=== PATIENT | male | born 1975 | race Caucasian/White ===

== ENCOUNTER 2017-01-08 05:09 | Day surgery (SDC) | payer BC ==
[~2017-01-08] VITALS: Ht 175.3 cm; Wt 72.7 kg
[~2017-01-08 05:09] MED LIST: ADDERALL 20 MG20 M1 PO
[2017-01-08 07:53] VITALS: BP 127/83; BMI 23.6
[2017-01-08] MEDS ORDERED: HYDROCODON-ACE1 EAC7 PO (12:18)
--- NOTE | 2017-01-08 20:05 | NUR ---
RECEIVED PT FROM OP SURGERY VIA WHEELCHAIR TO ROOM 1216 ACCOMPANIED BY STAFF AND FAMILY. INTRODUCED SELF. V/S TAKEN. ASSESSMENT DONE. STATUS POST BILATERAL INGUINAL HERNIA REPAIR TODAY WITH URINARY RETENTION. RUSSO CATH INSERTED IN OP SURGERY WITH BLOODY URINE OUTPUT IN DRAINAGE BAG. DENIES PAIN AT THIS TIME. ORIENTED TO ROOM AND BED CONROLS. PLAN OF CARE INITIATED.
[2017-01-08 20:10] VITALS: BP 108/58
[2017-01-08 20:38] VITALS: BP 108/58; Ht 175.3 cm; Wt 72.7 kg
--- NOTE | 2017-01-08 21:30 | NUR ---
IC3 BAG TO UMBILICAL AREA. SMALL SEROUS-SANGUINOUS DRAINAGE NOTED.
--- NOTE | 2017-01-09 01:00 | NUR ---
AWAKENED FOR V/S. INFORMED PT OF IV ORDER FOR 1L OF NS AND LASIX IV. PT REFUSED TO HAVE IV REINSERTED.
[2017-01-09 01:50] VITALS: BP 106/68
--- NOTE | 2017-01-09 01:59 | NUR ---
PAIN LEVEL 6/10 FROM POST-OP INGUINAL HERNIA REPAIR. NORCO 5/325 1tab PO GIVEN. V/S STABLE.
--- NOTE | 2017-01-09 03:10 | NUR ---
EYES CLOSED. LEFT UNDISTURBED. SPOUSE HERE.
--- NOTE | 2017-01-09 05:30 | NUR ---
SLEPT FAIRLY WELL DURING THE NIGHT. CONTINUING PLAN OF CARE.
--- NOTE | 2017-01-09 08:44 | NUR ---
PT REQUESTS PAIN MEDICATION FOR PAIN TO ABD INCISIONAL AREA, UMBILICAL REGION, ABDOMEN NOTED C/D/I. PT REPORTS DR. DAVID HAS BEEN IN THIS AM, DISCUSSING PLAN FOR DISCHARGE. FAMILY AT BEDSIDE. PT DENIES OTHER NEEDS AT THIS TIME. SR UP X 2, CALL LIGHT AND PHONE WITHIN REACH. NORCO 5 MG GIVEN FOR PT'S REQUEST FOR PAIN MEDICATION. SEE EMAR.
[2017-01-09] MEDS ORDERED: FLOMAX0.4 MG PO (09:41)
[2017-01-09] MEDS ORDERED: LASIX20 MG PO (09:42)
== END 2017-01-09 11:00 | disposition home or self-care (01) ==
LOC: D.WS 05:09 → D.OPS 05:09 → D.PAN 10:30 → D.WS 19:51 → D.OPS 01-09 11:00
DX: K40.20 Bilateral inguinal hernia, without obstruction or gangrene, not specified as recurrent (principal); Z01.812 Encounter for preprocedural laboratory examination

== ENCOUNTER → 2017-05-15 07:40 | Outpatient (CLI) | payer BC ==
[2017-01-08 20:38] VITALS: BMI 23.6
[~2017-05-15 07:40] MED LIST changes: +FLOMAX0.4 MG PO; +HYDROCODON-ACE1 EAC7 PO; +LASIX20 MG PO
== END | disposition home or self-care (01) ==
LOC: D.CT 07:40
DX: R10.9 Unspecified abdominal pain (principal)